=== PATIENT | male | born 2000 | race Caucasian/White ===

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

== ENCOUNTER → 2021-03-02 | Outpatient (REF) | payer BC ==
[2021-03-02 14:08] LABS: SOURCE, BODY FLUID OTHER; SYNOVIAL FLUID COLOR RED (COLORLESS)
[2021-03-02 14:09] LABS: CRYSTALS, BODY FLUID NONE SEEN (NONE SEEN); SOURCE, BODY FLUID CRYSTALS OTHER
[2021-03-02 14:26] LABS: BODY FLUID RHEUMATOID SCREEN NEGATIVE (NEGATIVE); MUCIN CLOT TEST NO CLOT (4+)
[2021-03-02 15:00] LABS: SOURCE, BODY FLUID GLUCOSE OTHER
== END ==
LOC: M LAB REF 13:37
PROVIDERS: ATTEND Physician Assistant
DX: R22.2 Localized swelling, mass and lump, trunk (principal)